=== PATIENT | male | born 1945 | race Caucasian/White ===

== ENCOUNTER → 2019-09-15 | Outpatient (CLI) | payer BC, MEDICARE ==
[~2019-09-15] MED LIST: MULT1TAB60 PO
== END | disposition home or self-care (01) ==
LOC: STAR 13:36
PROVIDERS: ATTEND Internal Medicine Geriatric Medicine
DX: Z01.818 Encounter for other preprocedural examination (principal); K63.5 Polyp of colon
CPT/HCPCS: 93005

== ENCOUNTER 2019-09-29 06:37 | Day surgery (SDC) | payer OTHER, MEDICARE ==
[~2019-09-29] VITALS: Ht 188 cm; Wt 96.9 kg
[2019-09-29] MEDS ORDERED: LACTATED RINGERS 1,000 ML IV SCH (07:12)
[2019-09-29 07:38] VITALS: BP 132/86
[2019-09-29] MEDS ORDERED: SIMETHICONE DROPS 40 MG/0.6 ML BOTTLE ONE (08:59)
[2019-09-29] MEDS ORDERED: PROPOFOL 10 MG/ML, 20ML ONE ×3 (09:19→09:23)
[2019-09-29] MEDS ORDERED: LIDOCAINE-MPF 2% ,5ML ONE (09:19)
== END 2019-09-29 11:20 | disposition home or self-care (01) ==
LOC: OUT 06:37
PROVIDERS: ATTEND Internal Medicine Geriatric Medicine
DX: D12.2 Benign neoplasm of ascending colon (principal); Z85.72 Personal history of non-Hodgkin lymphomas
CPT/HCPCS: 45381; 45385; 88305; J2704; J7120